=== PATIENT | male | born 2000 | race Caucasian/White ===

== ENCOUNTER 2022-01-31 11:06 | Emergency (ER) | payer OTHER ==
[~2022-01-31 11:06] MED LIST: NARCAN4 MG INH
[2022-01-31] MEDS ORDERED: NARCAN4 MG (15:10)
== END 2022-01-31 15:30 | disposition home or self-care (01) ==
LOC: FER 11:06
DX: T40.1X1A Poisoning by heroin, accidental (unintentional), initial encounter (principal); R41.82 Altered mental status, unspecified; F17.290 Nicotine dependence, other tobacco product, uncomplicated
CPT/HCPCS: 93005